=== PATIENT | female | born 1970 | race Caucasian/White ===

== ENCOUNTER 2016-10-10 12:51 | Emergency (ER) | payer MEDICAID ==
[~2016-10-10] VITALS: Wt 54.2 kg
[~2016-10-10 12:51] MED LIST: ASPI81TA3 PO; CARV3.1260 PO
[2016-10-10] MEDS ORDERED: ADENOSINE 6 ML ONE (13:07)
[2016-10-10] MEDS ORDERED: METOPROLOL 5 MG INJ IV ONE (13:30)
[2016-10-10] MEDS ORDERED: ASPI81TA3 PO (14:02)
[2016-10-10 14:52] LABS: ANION GAP 12 (8-16); BLOOD UREA NITROGEN 11 mg/dl (7-20); CALCIUM 8.1 mg/dl (8.4-10.2); CARBON DIOXIDE 24 mmol/L (21-31); CHLORIDE 113 mmol/L (97-110); CREATININE 0.59 mg/dl (0.44-1.00); GLUCOSE 88 mg/dl (70-220); POTASSIUM 4.3 mmol/L (3.5-5.1); SODIUM 145 mmol/L (135-144)
[2016-10-10 15:10] LABS: TROPONIN-I < 0.012 ng/ml (0.00-0.12)
[2016-10-10] MEDS ORDERED: CARV6.25 PO (15:30)
[2016-10-10 15:40] VITALS: BP 122/80; PULSE 72; RESP 16; TEMP 98.2
--- NOTE | 2016-10-10 21:57 | ERD ---
ER Documentation Chief Complaint Date/Time DATE: 10/10/16 TIME: 21:54 Chief Complaint PALPATATIONS WHEN BENDING OVER ABOUT 30 MIN WITH NAUSEA. NO SOB NOTED HPI Patient presents with palpitations and mild nausea as well as feeling of heart racing out of chest for last 30 minutes. She has a heart rate over 200 according to paramedics. She does have a history of SVT and has spoken with labor trainer about future ablation. She is currently on Coreg 100 mg. She has no fevers or chills. ROS All systems reviewed and are negative except as per history of present illness. Medications Home Meds Active Scripts Carvedilol* (Coreg*) 6.25 Mg Tablet, 6.25 MG PO BID, #20 TAB Prov:ILEANA LUJAN DO 10/10/16 Carvedilol* (Carvedilol*) 3.125 Mg Tablet, 3.125 MG PO BID for 30 Days, TAB 2 Refills Prov:MICHAELJOSBARRON Negrete. 04/28/16 Reported Medications Aspirin* (Aspirin* Chew) 81 Mg Tab.chew, 81 MG PO DAILY, TAB.CHEW 10/10/16 Discontinued Scripts Aspirin (Aspirin) 81 Mg Chew, 81 MG PO DAILY for 30 Days, TAB 2 Refills Prov:MICHAELJOS FlowersBARRON M. 04/28/16 Allergies Allergies: Coded Allergies: No Known Allergy (Unverified , 04/26/16) PMhx/Soc History of Surgery: Yes (C- SECTION) Anesthesia Reaction: No Hx Neurological Disorder: No Hx Respiratory Disorders: No Hx Cardiac Disorders: Yes (SVT) Hx Psychiatric Problems: No Hx Miscellaneous Medical Probl: No Hx Alcohol Use: Yes (OCCASIONAL) Hx Substance Use: No Hx Tobacco Use: No Smoking Status: Never smoker Physical Exam Vitals Vital Signs Date Time Temp Pulse Resp B/P Pulse Ox O2 Delivery O2 Flow Rate FiO2 10/10/16 15:40 98.2 72 16 122/80 100 Room Air 10/10/16 12:53 98.2 220 22 130/57 100 Physical Exam Const: [] Moderate distress, appears very uncomfortable Head: Atraumatic Eyes: Normal Conjunctiva ENT: Normal External Ears, Nose and Mouth. Neck: Full range of motion..~ No meningismus. Resp: Clear to auscultation bilaterally Cardio: Extreme regular tachycardia, no murmurs Abd: Soft, non tender, non distended. Normal bowel sounds Skin: No petechiae or rashes Back: No midline or flank tenderness Ext: No cyanosis, or edema Neur: Awake and alert and oriented 3, no focal deficits Psych: Normal Mood and Affect Result Diagram: 10/10/16 1400 Results 24 hrs Laboratory Tests Test 10/10/16 14:00 Sodium Level 145mmol/L Potassium Level 4.3mmol/L Chloride Level 113mmol/L Carbon Dioxide Level 24mmol/L Anion Gap 12 Blood Urea Nitrogen 11mg/dl Creatinine 0.59mg/dl Glucose Level 88mg/dl Calcium Level 8.1mg/dl Troponin I < 0.012ng/ml Current Medications Medications (Trade) Dose Ordered Sig/[place] Route PRN Reason Start Time Stop Time Status Last Admin Dose Admin Metoprolol Tartrate (Lopressor) 5 mg ONCE ONCE IV 10/10/16 13:30 10/10/16 13:31 DC 10/10/16 13:26 Procedures/MDM Symptomatic SVT. No signs of cardiac ischemia currently. Patient did require 2 doses of adenosine in order to break SVT and a normal sinus rhythm. I then give her IV metoprolol following intermittent return to SVT. She is on a very low dose of Coreg at 3.125 mg. I am going to increase it to 6.25 in order to prevent recurrence of this. She Gavino has good cardiology follow-up. Vital signs were stabilized in the emergency room. Discharging with return precautions. EKG #1 interpretation: Sinus tachycardia rate of 217, shortened [place] interval of 100, normal axis, rate related changes with no obvious ST or T-wave changes concerning for acute ischemia, likely rate related ST depressions. EKG #2, during cardioversion." SVT followed by asystolic pause followed by normal sinus rhythm. Normal axis, no ST or T-wave changes concerning for acute ischemia Critical care time 34 minutes: This includes treatment of SVT, initial failure of vagal maneuvers followed by 6 mg of adenosine without capture, followed by 12 mg of adenosine which did cardiovert the patient was stable rhythm. IV the metoprolol was then given., Includes multiple visits the patient's bedside to reassess status and chart review, also includes discussion with patient. This does not include any billable procedures. Departure Diagnosis: Primary Impression: SVT (supraventricular tachycardia) Condition: Stable Patient Instructions: SVT Referrals: [facility] YOU HAVE RECEIVED A MEDICAL SCREENING EXAM AND THE RESULTS INDICATE THAT YOU DO NOT HAVE A CONDITION THAT REQUIRES URGENT TREATMENT IN THE EMERGENCY DEPARTMENT. FURTHER EVALUATION AND TREATMENT OF YOUR CONDITION CAN WAIT UNTIL YOU ARE SEEN IN YOUR DOCTORS OFFICE WITHIN THE NEXT 1-2 DAYS. IT IS YOUR RESPONSIBILITY TO MAKE AN APPOINTMENT FOR FOLOW-UP CARE. IF YOU HAVE A PRIMARY DOCTOR --you should call your primary doctor and schedule an appointment IF YOU DO NOT HAVE A PRIMARY DOCTOR YOU CAN CALL OUR PHYSICIAN REFERRAL HOTLINE AT IF YOU CAN NOT AFFORD TO SEE A PHYSICIAN YOU CAN CHOSE FROM THE FOLLOWING [facility] [address] [facility]. [facility] [address] [facility]. [facility] [address] [facility] [facility] [address] [facility] [facility] [address] [facility] [facility]. [address] Additional Instructions: Call your labor trainer for an appointment during the next 2-3 days.See the doctor sooner or return here if your condition worsens before your appointment time. ILEANA LUJAN DO October 10, 2016 21:57
== END 2016-10-10 15:41 | disposition home or self-care (01) ==
LOC: E/R 12:51
DX: I47.1 Supraventricular tachycardia (principal); Z79.82 Long term (current) use of aspirin
CPT/HCPCS: 80048; 84484; J0153; Z7610; 93005; 96374